=== PATIENT | male | born 1965 | race Caucasian/White ===

== ENCOUNTER 2019-09-17 22:29 | Emergency (ER) | payer BC ==
[~2019-09-17] VITALS: Ht 185.4 cm; Wt 102.3 kg
[~2019-09-17 22:29] MED LIST: NEXIUM 20MG CAP20 MG PO; PROAIR HFA0.09 MG/AC IH; VENTOLIN0.09 MG IH
[2019-09-17 22:39] VITALS: PULSE 88; TEMP 97.7
[2019-09-17 23:25] VITALS: BP 133/100
== END 2019-09-17 23:25 | disposition home or self-care (01) ==
LOC: COL.ER 22:29
DX: M70.21 Olecranon bursitis, right elbow (principal); Z88.0 Allergy status to penicillin

== ENCOUNTER → 2020-05-20 | Outpatient (CLI) | payer BC ==
[~2020-05-20] MED LIST changes: +NORCO 325 MG-51 TAB PO
== END ==
LOC: COL.RAD 07:00
DX: N20.0 Calculus of kidney (principal)